=== PATIENT | male | born 1965 | race Caucasian/White ===

== ENCOUNTER 2018-07-04 08:55 | Day surgery (SDC) | payer OTHER ==
[~2018-07-04 08:55] MED LIST: PROPOFOL 200 MG INJ
[2018-07-04] MEDS ORDERED: LACTATED RINGER'S 1,000 ML IV* (10:00)
[2018-07-04] MEDS ORDERED: PROPOFOL 20 ML (10:27)
[2018-07-04] MEDS ORDERED: MIDAZOLAM 1 MG/ML 2 ML INJ (10:27)
[2018-07-04] MEDS ORDERED: FENTAnyl 50 MCG/ML VIAL (10:27)
[2018-07-04] MEDS ORDERED: ONDANSETRON 4 MG INJ (10:28)
[2018-07-04] MEDS ORDERED: METOCLOPRAMIDE 10 MG INJ (10:28)
[2018-07-04] MEDS ORDERED: ONDANSETRON 4 MG INJ IV (10:30)
[2018-07-04] MEDS ORDERED: OXYCODONE/ACETAMINOPHEN (5/325) TAB PO ×2 (10:30)
[2018-07-04] MEDS ORDERED: HYDROmorphONE 1 MG/5 ML IV SYRINGE IV ×2 (10:30)
[2018-07-04] MEDS ORDERED: MEPERIDINE 25 MG INJ IV (10:30)
[2018-07-04] MEDS ORDERED: DIPHENHYDRAMINE 50 MG INJ IV (10:30)
[2018-07-04] MEDS ORDERED: CEFAZOLIN 1 GM INJ (10:35)
[2018-07-04] MEDS: ROPIVACAINE 0.5 % 30 ML VIAL (11:31)
[2018-07-04] MEDS: HYDROmorphONE 1 MG/5 ML IV SYRINGE IV (12:18)
== END 2018-07-04 13:26 | disposition home or self-care (01) ==
LOC: SDS 08:55
DX: M23.222 Derangement of posterior horn of medial meniscus due to old tear or injury, left knee (principal); M94.262 Chondromalacia, left knee
CPT/HCPCS: 29881